=== PATIENT | female | born 1965 | race Two or more races ===

== ENCOUNTER 2020-03-14 06:28 | Inpatient (IN) | payer OTHER ==
[2020-03-13 10:11] VITALS: BMI 29.1
[2020-03-14] MEDS ORDERED: BUPIVACAINE LIPOSOME/PF (EXPAREL) 266 MG/20 ML VIAL ONE (07:10)
[2020-03-14] MEDS ORDERED: PAPAVERINE HCL 30 MG/1 ML 10 ML VIAL NR ONE (07:10)
[2020-03-14] MEDS ORDERED: HEPARIN NA (PORCINE) 5,000 UNITS/ML 1ML VIAL ONE (07:10)
[2020-03-14] MEDS ORDERED: BUPIVACAINE HCL/PF 0.25% (2.5MG/ML) 10 ML VIAL ONE (07:11)
[2020-03-14] MEDS ORDERED: MIDAZOLAM HCL 2 MG/2 ML SINGLE DOSE VIAL ONE ×2 (07:59)
[2020-03-14] MEDS ORDERED: ROCURONIUM BROMIDE 50 MG/5 ML SYRINGE ONE ×4 (08:16→14:05)
[2020-03-14] MEDS ORDERED: PROPOFOL 20 ML ONE ×10 (08:16→18:10)
[2020-03-14] MEDS ORDERED: ceFAZolin SODIUM 1 GM VIAL IVPB ONE ×3 (08:20→21:10)
[2020-03-14] MEDS ORDERED: HEPARIN NA (PORCINE) 5,000 UNITS/ML 1ML VIAL SQ ONE ×3 (08:23→09:09)
[2020-03-14] MEDS ORDERED: EPINEPHrine/PF 1 MG/1 ML (1:1,000) AMPULE ONE (08:38)
[2020-03-14] MEDS ORDERED: BUPIVACAINE LIPOSOME/PF (EXPAREL) 266 MG/20 ML VIAL NR ONE (08:51)
[2020-03-14] MEDS ORDERED: BUPIVACAINE HCL/PF 2.5 MG/ML - 30 ML VIAL IJ ONE (08:51)
[2020-03-14] MEDS ORDERED: ROCURONIUM BROMIDE 100 MG/10 ML VIAL ONE (14:07)
[2020-03-14] MEDS ORDERED: LIDOCAINE HCL/PF 2% SDV 5ML VIAL ONE ×4 (14:08→17:29)
[2020-03-14] MEDS ORDERED: DEXAMETHASONE SOD PHOSPHATE 4 MG/1 ML VIAL ONE ×2 (14:08→18:07)
[2020-03-14] MEDS ORDERED: ceFAZolin SODIUM 1 GM VIAL ONE ×2 (14:08→20:59)
[2020-03-14] MEDS ORDERED: ONDANSETRON 4 MG/2 ML VIAL ONE ×2 (14:08→18:07)
[2020-03-14] MEDS ORDERED: ONDANSETRON 4 MG/2 ML VIAL IVPUSH PRN (17:40)
[2020-03-14] MEDS ORDERED: INDOCYANINE GREEN 25 MG/10 ML VIAL IVPUSH ONE (18:01)
[2020-03-14] MEDS ORDERED: NEOSTIGMINE METHYLSULFATE 0.5 MG/1 ML - 10 ML MDV ONE ×2 (18:06→18:35)
[2020-03-14] MEDS ORDERED: GLYCOPYRROLATE 0.2 MG/1 ML VIAL ONE (18:07)
[2020-03-14] MEDS ORDERED: HYDROmorphone HCl 2 MG/ML VIAL ONE (18:08)
[2020-03-14] MEDS ORDERED: oxyCODONE HCL 5 MG TABLET PO PRN (19:00)
[2020-03-14] MEDS ORDERED: DEXTROSE 5%-0.45% SALINE 1,000 ML IV SCH (19:00)
--- NOTE | 2020-03-14 19:06 | OP ---
Operative Note - Note: Operative Date: 03/14/20 Pre-Operative Diagnosis: breast cancer s/p b/l mastectomy Operation: B/l BENNY flaps breast reconstruction Surgeon: Maadn Kim Film Processing Shift Supervisor: Isaac Salazar Anesthesiologist/HOOKER OFF: Daja Tapia MD Anesthesia: General Estimated Blood Loss (mls): 150 Drains & Tubes with Location: drains B/l breast and b/l abdomen Operative Report Dictated: Yes
[2020-03-14] MEDS: CEFAZOLIN 1 GM/D5W 1 GM/50 ML BAG IVPB SCH (21:10)
[2020-03-14] MEDS ORDERED: DOCUSATE SODIUM 100 MG CAPSULE (FP) PO SCH (22:00)
[2020-03-14] MEDS: LACTATED RINGERS SOLUTION 1,000 ML IV SCH (22:41)
--- NOTE | 2020-03-14 22:58 | CONSULT ---
Consultation: REQUESTING PROVIDER: CONSULT REQUEST: We have been asked to medically evaluate this patient for stability following bilateral mastectomy w/ BENNY flap reconstruction. HISTORY OF PRESENT ILLNESS: 54 yo F w/ PSHx of previous prophylactic, bilateral mastectomy w/ reconstruction (2010 - Dr. 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 Surgery performed by Dr. Kim. Patient has an internal doppler monitoring system to follow perfusion. Currently endorsing pain and tenderness expected of this surgery, within normal limits. Denies any BURKETT, changes in vision, CP, SoB, dizzyness, or parasthesias. PMHx - None PSHx -Prophylactic BL Mastectomy (2010) by Dr. Alonso w/ 1 step reconstruction -Lipoma (1997) SH -Lives w/ partner -Works for [employer] -Social Drinker -Denies tobacco/drug use FH -Multiple female family members w/ breast cancer Medications -Probiotic for bloating Alg -NKDA REVIEW OF SYSTEMS: CONSTITUTIONAL: Absent: fever, chills, diaphoresis, generalized weakness, malaise, loss of appetite HEENT: Absent: rhinorrhea, nasal congestion, throat pain, throat swelling, difficulty swallowing, mouth swelling, ear pain, eye pain, visual changes CARDIOVASCULAR: Absent: chest pain, syncope, palpitations, irregular heart rate, lightheadedness, peripheral edema RESPIRATORY: Absent: cough, shortness of breath, dyspnea with exertion, orthopnea, wheezing, stridor, hemoptysis GASTROINTESTINAL: Present: abdominal pain 2/2 surgery. Pain is as expected. Absent: abdominal distension, nausea, vomiting, diarrhea GENITOURINARY: Absent: dysuria, frequency, urgency, hesitancy, hematuria, flank pain, genital pain MUSCULOSKELETAL: Absent: myalgia, arthralgia, joint swelling, back pain, neck pain SKIN: Absent: rash, itching, pallor HEMATOLOGIC/IMMUNOLOGIC: Absent: easy bleeding, easy bruising, lymphadenopathy, frequent infections ENDOCRINE: Absent: unexplained weight gain, unexplained weight loss, heat intolerance, cold intolerance NEUROLOGIC: Absent: headache, focal weakness or paresthesias, dizziness, unsteady gait, seizure, mental status changes, bladder or bowel incontinence PSYCHIATRIC: Absent: anxiety, depression, suicidal or homicidal ideation, hallucinations. PHYSICAL EXAMINATION Vital Signs - 24 hr 03/14/20 03/14/20 03/14/20 21:00 21:15 21:30 Temperature Pulse Rate 80 75 85 Respiratory 15 16 18 Rate Blood Pressure 118/73 134/87 124/83 O2 Sat by Pulse 100 100 100 Oximetry (%) GENERAL: Awake, alert, and fully oriented, in no acute distress. HEAD: Normal with no signs of trauma. EYES: Pupils equal, round and reactive to light, extraocular movements intact, sclera anicteric, conjunctiva clear. No lid lag. EARS, NOSE, THROAT: Ears normal, nares patent, oropharynx clear without exudates. Moist mucous membranes. NECK: Normal range of motion, supple without lymphadenopathy, JVD, or masses. LUNGS: Breath sounds equal, clear to auscultation bilaterally. No wheezes, and no crackles. No accessory muscle use. HEART: Regular rate and rhythm, normal S1 and S2 without murmur, rub or gallop. ABDOMEN: Large incision s/p breast reconstruction w/ abdominal flap. BS+ MUSCULOSKELETAL: Strength 5/5 in upper/lower extremities b/l UPPER EXTREMITIES: warm, well-perfused. LOWER EXTREMITIES: warm, well-perfused. NEUROLOGICAL: Cranial nerves II-XII intact. Normal speech. PSYCHIATRIC: Cooperative. Good eye contact. Appropriate mood and affect. SKIN: Warm, dry, normal turgor, no rashes or lesions noted. Laboratory Results - last 24 hr 03/14/20 03/14/20 06:57 07:54 Blood Type A POSITIVE A POSITIVE Antibody Screen Negative Active Medications Generic Name Dose Route Start Last Admin Trade Name Freq PRN Reason Stop Dose Admin Aspirin 325 mg 03/15/20 10:00 Asa - PO DAILY [facility] Diazepam 5 mg 03/14/20 19:00 Valium - PO Q8H PRN ANXIETY Docusate Sodium 100 mg 03/14/20 22:00 Colace - PO BID ELENA Docusate Sodium 100 mg 03/15/20 10:00 Colace - PO DAILY ELENA Enoxaparin Sodium 40 mg 03/15/20 10:00 Lovenox - SQ DAILY ELENA Fentanyl 50 mcg 03/14/20 17:40 03/14/20 20:00 Sublimaze Injection - IVPUSH 50 mcg [id number] PRN Administration PAIN-PACU ORDER X 4 DOSES ONLY Hydromorphone HCl 1 mg 03/14/20 21:04 Dilaudid Vial - IVPB Q4H PRN PAIN LEVEL 6-10 Lactated Ringer's 1,000 mls @ 75 mls/hr 03/14/20 17:45 03/14/20 22:41 Lactated Ringers Solution IV Not Given ASDIR ELENA Cefazolin Sodium 1 gm in 50 mls @ 100 mls/hr 03/14/20 21:00 03/14/20 21:10 Ancef 1 Gm Premixed Ivpb - IVPB 03/15/20 20:59 100 mls/hr Q6H-IV ELENA Administration Dextrose/Sodium Chloride 1,000 mls @ 125 mls/hr 03/14/20 19:00 03/14/20 22:41 D5-1/2ns - IV 03/15/20 07:59 Not Given ASDIR ELENA Dextrose/Sodium Chloride 1,000 mls @ 75 mls/hr 03/15/20 08:00 D5-1/2ns - IV ASDIR ELENA Ondansetron HCl 4 mg 03/14/20 17:40 Zofran Injection IVPUSH Q6H PRN NAUSEA AND/OR VOMITING Oxycodone HCl 5 mg 03/15/20 19:00 Roxicodone - PO Q4H PRN PAIN LEVEL 1-5 Oxycodone HCl 10 mg 03/14/20 19:00 Roxicodone - PO Q4H PRN PAIN LEVEL 6-10 ASSESSMENT/PLAN: 54 yo F w/ PSHx of previous prophylactic, bilateral mastectomy w/ reconstruction (2010 - Dr. 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 Surgery performed by Dr. Kim. NEURO -AAOx3 -Monitor neural functions -Monitor for any neurologic comprosmise 2/2 to vascular perfusion CARDIO -Monitor HR/BP -EKG tomorrow (establish baseline) -Check Dopplers at transplant site @ q15 first hour, q30 next 2 hours, then q1 PULM -Incentive spirometer -Elevate head of bed -SCDs GI -GI PPx as needed -Zofran Ordered (EKG ordered for tomorrow) -Stool softeners Pain -Pain management per anasthesia/surgery -Valium for anxiety -Dilaudid for pain INFECTIONS -Ancef FEN -Clear liquid Diet -Morning Labs Ordered -Ame Espinal Dispo: We will continue to follow the patient. Thank you for this consultative opportunity. -Partner called told ptn was out of surgery and in ICU -Asked to inform ptn that he was made aware (ptn asleep at time) Visit type - Emergency Visit Emergency Visit: No - New Patient This patient is new to me today: Yes Date on this admission: 03/15/20 - Critical Care Critical Care patient: Yes Total Critical Care Time (in minutes): 36 Critical Care Statement: The care of this patient involved high complexity decision making to prevent further life threatening deterioration of the patient's condition and/or to evaluate & treat vital organ system(s) failure or risk of failure. ATTENDING PHYSICIAN STATEMENT I saw and evaluated the patient. I reviewed the resident's note and discussed the case with the resident. I agree with the resident's findings and plan as documented. SUBJECTIVE: OBJECTIVE: ASSESSMENT AND PLAN:
[2020-03-14] MEDS: HYDROmorphone HCl 2 MG/ML VIAL IVPB PRN (23:12)
[2020-03-15] MEDS: diazePAM 5 MG TABLET PO PRN (02:01)
[2020-03-15] MEDS ORDERED: DEXTROSE 5%-WATER - 50 ML IVPB ONE ×3 (03:19→13:56)
[2020-03-15] MEDS ORDERED: ceFAZolin SODIUM 1 GM VIAL ONE ×3 (03:19→13:56)
[2020-03-15] MEDS: CEFAZOLIN 1 GM in DEXTROSE 5%-WATER - 50 ML IVPB SCH ×3 (03:21→14:45)
[2020-03-15] MEDS: HYDROmorphone HCl 2 MG/ML VIAL IVPB PRN ×3 (03:21→16:53)
[2020-03-15] MEDS: CEFAZOLIN 1 GM/D5W 1 GM/50 ML BAG IVPB SCH (04:04)
[2020-03-15] MEDS: DEXTROSE 5%-0.45% SALINE 1,000 ML IV SCH (07:22)
[2020-03-15 07:23] LABS: BASO % 0.2 % (0-2.0); HEMATOCRIT 28.3 % (32.4-45.2); HEMOGLOBIN 9.5 GM/dL (10.7-15.3); LYMPH % 12.6 % (8-40); MCH 30.2 pg (25.7-33.7); MCHC 33.5 g/dl (32.0-36.0); MEAN PLT VOLUME 9.5 fl (7.5-11.1); MONO % 7.9 % (3.8-10.2); NEUT % 79.3 % (42.8-82.8); PLATELET COUNT 215 K/MM3 (134-434); RBC 3.15 M/mm3 (3.60-5.2); RDW 13.2 % (11.6-15.6); WHITE BLOOD COUNT 9.6 K/mm3 (4.0-10.0)
[2020-03-15 07:31] LABS: INR 1.13 (0.83-1.09); PROTHROMBIN TIME (PATIENT) 13.3 SEC (9.7-13.0)
[2020-03-15 07:40] LABS: POTASSIUM 4.4 mmol/L (3.5-5.1)
[2020-03-15 07:47] LABS: ALBUMIN 2.9 g/dl (3.4-5.0); BILIRUBIN,TOTAL 0.5 mg/dL (0.2-1); BLOOD UREA NITROGEN 16.2 mg/dL (7-18); PHOSPHOROUS 3.7 mg/dL (2.5-4.9); TOT PROT 5.6 g/dl (6.4-8.2)
[2020-03-15] MEDS: ENOXAPARIN NA (PORCINE) 40 MG/0.4 ML DISP.SYRIN SQ SCH (09:28)
[2020-03-15] MEDS: ASPIRIN 325 MG TABLET PO SCH (09:28)
[2020-03-15] MEDS: DOCUSATE SODIUM 100 MG CAPSULE (FP) PO SCH ×2 (09:29→21:42)
[2020-03-15] MEDS: oxyCODONE HCL 5 MG TABLET PO PRN ×3 (09:30→21:41)
--- NOTE | 2020-03-15 09:41 | PN ---
Progress Note (short form) - Note Progress Note: POD 1, s/p B/l BENNY flaps breast reconstruction Pt seen and examined. Reports pain overnight, worse in rlq. Tolerating liquids, no n/v. Has not been oob. Palacios in place. Denies cp/sob, n/v/d. Vital Signs Temp 99 F 03/15/20 09:35 Pulse 79 03/15/20 09:35 Resp 20 03/15/20 09:35 BP 120/73 03/15/20 08:00 Pulse Ox 100 03/15/20 07:00 Intake & Output 03/14/20 03/14/20 03/15/20 11:59 23:59 11:59 Intake Total 3800 300 1550 Output Total 900 1216 413 Balance 2900 -916 1137 Weight 175 lb Intake: IV 3800 300 1250 D5-1/2Ns - 1,000 ml @ 125 1250 mls/hr IV ASDIR ELENA Rx#: [id number] IVPB 100 Oral 200 Output: Drainage 166 213 #1 Right Breast 30 41 #2 Right Lower Abdomen 10 19 #3 Left Breast 25 26 #4 Left Lower 18 42 Left Lower Abdomen 28 Right Lower Abdomen 13 left breast 17 right breast 27 Urine 900 900 200 Palacios 200 200 Estimated Blood Loss 150 Other: Voiding Method Incontinent Indwelling Catheter Bowel Movement No Weight Measurement Method Estimated by Patient CBC, BMP 03/15/20 05:30 03/15/20 06:00 Gen: awake, alert, nad Resp: unlabored on RA Chest: b/l flaps warm, pink, no vascular congestion noted, pulses appreciated via implantable doppler. Inframammary incisions c/d/i with dermabond inplace, drains intact, b/l tubing stripped, minimal serosanguinous drainage in reservoi rs. Abdo: belly button with dermabond c/d/i, umbilicus pink with dried scab noted. abdominoplasty incision c/d/i with dermabond in place, no erythema or drainage. drains in place with minimal serosanguinous drainage in reservoir, tubing stripped. A/P: 54 y/o F w/ PSHx of previous prophylactic, bilateral mastectomy w/ reconstruction (2010 - Dr. 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 afebrile, vss labs reviewed tiana output since OR: R breast: 71ml, R abdo: 29ml, L breast 51ml, L abdo: 60ml UOP: 400ml overnight, palacios yellow Pain control OOB today to chair (pt should remain flexed at the waist when in bed and ambulating) clears, advance diet as tolerated Continue pulse monitoring Keep jps in place, monitor and record output palacios out this AM, tov Continue Ancef 1g q8hrs Monitor flaps q1hrs x 36 hrs until POD 2 Continue ASA 325mg qd DVT prophylaxis with lovenox 40qd, b/l scds pt seen with attending Dr Salazar
[2020-03-15] MEDS ORDERED: DOCUSATE SODIUM 100 MG CAPSULE (FP) PO SCH (10:00)
--- NOTE | 2020-03-15 11:38 | EKG ---
Test Reason : Blood Pressure : / mmHG Vent. Rate : 085 BPM Atrial Rate : 085 BPM P-R Int : 136 ms QRS Dur : 082 ms QT Int : 358 ms P-R-T Axes : 042 034 028 degrees QTc Int : 426 ms NORMAL SINUS RHYTHM NORMAL ECG NO PREVIOUS ECGS AVAILABLE Confirmed by MD RENETTA, DEONDRE ([id number]) on 03/15/2020 11:37:33 AM Referred By: Confirmed By:DEONDRE JACKSON MD
--- NOTE | 2020-03-15 12:13 | PN ---
Teaching Attending Note Name of Resident: Stefani Cameron ATTENDING PHYSICIAN STATEMENT I saw and evaluated the patient. I reviewed the resident's note and discussed the case with the resident. I agree with the resident's findings and plan as documented. SUBJECTIVE: Pt seen and examined in the ICU. Pain controlled. No shortness of breath, n ausea. Serosanguinous drainage in JPs, good doppler flow. OBJECTIVE: Vital Signs Period Temp Pulse Resp BP Sys/Doran Pulse Ox Last 24 Hr 98 F-100.2 F 73-102 13-25 110-143/62-92 98-100 Intake & Output 03/12/20 03/13/20 03/14/20 03/15/20 23:59 23:59 23:59 23:59 Intake Total 4100 1550 Output Total 2116 413 Balance 1983 1136 Weight 79.379 kg 79.379 kg Gen: NAD at rest Heart: RRR Lung: decreased breath sounds at the bases Abd: soft, incisions clean Ext: no edema CBC, BMP 03/15/20 05:30 03/15/20 06:00 Active Medications Aspirin (Asa -) 325 mg PO DAILY [facility] Last Admin: 03/15/20 09:28 Dose: 325 mg Documented by: Diazepam (Valium -) 5 mg PO Q8H PRN PRN Reason: ANXIETY Last Admin: 03/15/20 02:01 Dose: 5 mg Documented by: Docusate Sodium (Colace -) 100 mg PO BID [facility] Last Admin: 03/15/20 09:29 Dose: 100 mg Documented by: Enoxaparin Sodium (Lovenox -) 40 mg SQ DAILY [facility] Last Admin: 03/15/20 09:28 Dose: 40 mg Documented by: Hydromorphone HCl (Dilaudid Vial -) 1 mg IVPB Q4H PRN PRN Reason: PAIN LEVEL 4-6 Last Admin: 03/15/20 07:23 Dose: 1 mg Documented by: Lactated Ringer's (Lactated Ringers Solution) 1,000 mls @ 75 mls/hr IV ASDIR [facility] Last Admin: 03/14/20 22:41 Dose: Not Given Documented by: Dextrose/Sodium Chloride (D5-1/2ns -) 1,000 mls @ 75 mls/hr IV ASDIR [facility] Last Admin: 03/15/20 07:22 Dose: 75 mls/hr Documented by: Cefazolin Sodium 1 gm/ (Dextrose) 50 mls @ 100 mls/hr IVPB Q6H-IV ELENA Stop: 03/15/20 20:59 Last Admin: 03/15/20 09:28 Dose: 100 mls/hr Documented by: Ondansetron HCl (Zofran Injection) 4 mg IVPUSH Q6H PRN PRN Reason: NAUSEA AND/OR VOMITING Oxycodone HCl (Roxicodone -) 5 mg PO Q4H PRN PRN Reason: PAIN LEVEL 1-3 Oxycodone HCl (Roxicodone -) 10 mg PO Q4H PRN PRN Reason: PAIN LEVEL 7-10 Last Admin: 03/15/20 09:30 Dose: 10 mg Documented by: ASSESSMENT AND PLAN: s/p Bilateral BENNY flap breast reconstruction Anemia - doppler checks - pain control - incentive spirometry - O2 to keep SpO2 >90% - PO as tolerated - DVT prophylaxis - continue ICU monitoring
--- NOTE | 2020-03-15 13:18 | PN ---
Physical Exam: SUBJECTIVE: Patient seen and examined at bedside. pt states she is uncomfortable with the mattress but otherwise denies palpitations, SOB. endorses discomfort around surgical site. OBJECTIVE: Vital Signs Period Temp Pulse Resp BP Sys/Doran Pulse Ox Last 24 Hr 98 F-100.2 F 73-102 13-25 110-143/62-92 98-100 GENERAL: The patient is awake, alert, and fully oriented, in no acute distress. HEAD: Normal with no signs of trauma. LUNGS: Breath sounds equal, clear to auscultation bilaterally, no accessory muscle use. HEART: Regular rate and rhythm, S1, S2 without murmur ABDOMEN: Soft, nontender, nondistended, normoactive bowel sounds, no guarding EXTREMITIES: 2+ pulses, warm, well-perfused, no edema. muscle strength 5/5 B/L UE and LE SKIN: Warm, dry, normal turgor, no rashes or lesions noted Laboratory Results - last 24 hr 03/15/20 03/15/20 03/15/20 05:30 05:30 06:00 WBC 9.6 RBC 3.15 L Hgb 9.5 L Hct 28.3 L MCV 90.0 MCH 30.2 MCHC 33.5 RDW 13.2 Plt Count 215 MPV 9.5 Absolute Neuts (auto) 7.7 Neutrophils % 79.3 Lymphocytes % 12.6 Monocytes % 7.9 Eosinophils % 0.0 Basophils % 0.2 Nucleated RBC % 0 PT with INR 13.30 H INR 1.13 H Sodium 137 Potassium 4.4 Chloride 105 Carbon Dioxide 24 Anion Gap 9 BUN 16.2 Creatinine 1.0 Est GFR (CKD-EPI)AfAm 73.45 Est GFR (CKD-EPI)NonAf 63.37 Random Glucose 149 H Calcium 8.0 L Phosphorus 3.7 Magnesium 2.0 Total Bilirubin 0.5 AST 44 H ALT 25 Alkaline Phosphatase 56 Total Protein 5.6 L Albumin 2.9 L Active Medications Generic Name Dose Route Start Last Admin Trade Name Freq PRN Reason Stop Dose Admin Aspirin 325 mg 03/15/20 10:00 03/15/20 09:28 Asa - PO 325 mg DAILY ELENA Administration Diazepam 5 mg 03/14/20 19:00 03/15/20 02:01 Valium - PO 5 mg Q8H PRN Administration ANXIETY Docusate Sodium 100 mg 03/15/20 10:00 03/15/20 09:29 Colace - PO 100 mg BID ELENA Administration Enoxaparin Sodium 40 mg 03/15/20 10:00 03/15/20 09:28 Lovenox - SQ 40 mg DAILY ELENA Administration Hydromorphone HCl 1 mg 03/14/20 21:04 03/15/20 07:23 Dilaudid Vial - IVPB 1 mg Q4H PRN Administration PAIN LEVEL 4-6 Lactated Ringer's 1,000 mls @ 75 mls/hr 03/14/20 17:45 03/14/20 22:41 Lactated Ringers Solution IV Not Given ASDIR ELENA Dextrose/Sodium Chloride 1,000 mls @ 75 mls/hr 03/15/20 08:00 03/15/20 07:22 D5-1/2ns - IV 75 mls/hr ASDIR ELENA Administration Cefazolin Sodium 1 gm/ 50 mls @ 100 mls/hr 03/15/20 03:20 03/15/20 09:28 Dextrose IVPB 03/15/20 20:59 100 mls/hr Q6H-IV ELENA Administration Ondansetron HCl 4 mg 03/14/20 17:40 Zofran Injection IVPUSH Q6H PRN NAUSEA AND/OR VOMITING Oxycodone HCl 5 mg 03/15/20 08:34 Roxicodone - PO Q4H PRN PAIN LEVEL 1-3 Oxycodone HCl 10 mg 03/15/20 08:34 03/15/20 09:30 Roxicodone - PO 10 mg Q4H PRN Administration PAIN LEVEL 7-10 ASSESSMENT/PLAN: 54 yo F w/ PSHx of previous prophylactic, bilateral mastectomy w/ reconstruction (2010 - Dr. 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 Kim. POD 1 NEURO -AAOx3 CARDIO -vitals stable -EKG tomorrow (establish baseline) -c/w Doppler check at transplant site q1hrs x 36 hrs until POD 2 - c/w asa 325 qd PULM -encourage Incentive spirometer -Elevate head of bed GI -Zofran Ordered (EKG ordered for tomorrow) -Stool softeners - clear diet, advance as tolerated MSK -Pain management per anasthesia/surgery -Valium for anxiety -Dilaudid for pain - c/w ancef q8h - OOB to chair DVTppx: lovenox 40 qd , SCDs Dispo:ICU Visit type - Emergency Visit Emergency Visit: No - New Patient This patient is new to me today: No - Critical Care Critical Care patient: Yes Total Critical Care Time (in minutes): 36 Critical Care Statement: The care of this patient involved high complexity decision making to prevent further life threatening deterioration of the patient's condition and/or to evaluate & treat vital organ system(s) failure or risk of failure. - Discharge Referral Referred to [facility] No ATTENDING PHYSICIAN STATEMENT I saw and evaluated the patient. I reviewed the resident's note and discussed the case with the resident. I agree with the resident's findings and plan as documented. SUBJECTIVE: OBJECTIVE: ASSESSMENT AND PLAN:
--- NOTE | 2020-03-15 14:11 | PN ---
Progress Note, Physician Chief Complaint: s/p BENNY flap under general anesthesia post op day one. History of Present Illness: IV/oral analgesics for post op pain control. - Current Medication List Current Medications: Active Medications Aspirin (Asa -) 325 mg PO DAILY [facility] Last Admin: 03/15/20 09:28 Dose: 325 mg Documented by: Diazepam (Valium -) 5 mg PO Q8H PRN PRN Reason: ANXIETY Last Admin: 03/15/20 02:01 Dose: 5 mg Documented by: Docusate Sodium (Colace -) 100 mg PO BID [facility] Last Admin: 03/15/20 09:29 Dose: 100 mg Documented by: Enoxaparin Sodium (Lovenox -) 40 mg SQ DAILY [facility] Last Admin: 03/15/20 09:28 Dose: 40 mg Documented by: Hydromorphone HCl (Dilaudid Vial -) 1 mg IVPB Q4H PRN PRN Reason: PAIN LEVEL 4-6 Last Admin: 03/15/20 07:23 Dose: 1 mg Documented by: Lactated Ringer's (Lactated Ringers Solution) 1,000 mls @ 75 mls/hr IV ASDIR [facility] Last Admin: 03/14/20 22:41 Dose: Not Given Documented by: Dextrose/Sodium Chloride (D5-1/2ns -) 1,000 mls @ 75 mls/hr IV ASDIR [facility] Last Admin: 03/15/20 07:22 Dose: 75 mls/hr Documented by: Cefazolin Sodium 1 gm/ (Dextrose) 50 mls @ 100 mls/hr IVPB Q6H-IV [facility] Stop: 03/15/20 20:59 Last Admin: 03/15/20 09:28 Dose: 100 mls/hr Documented by: Ondansetron HCl (Zofran Injection) 4 mg IVPUSH Q6H PRN PRN Reason: NAUSEA AND/OR VOMITING Oxycodone HCl (Roxicodone -) 5 mg PO Q4H PRN PRN Reason: PAIN LEVEL 1-3 Oxycodone HCl (Roxicodone -) 10 mg PO Q4H PRN PRN Reason: PAIN LEVEL 7-10 Last Admin: 03/15/20 13:57 Dose: 10 mg Documented by: - Objective Vital Signs: Vital Signs Temperature 99.2 F 03/15/20 13:27 Pulse Rate 80 03/15/20 13:27 Respiratory Rate 20 03/15/20 13:27 Blood Pressure 121/68 03/15/20 12:00 O2 Sat by Pulse Oximetry (%) 100 03/15/20 07:00 Constitutional: Yes: Well Nourished Cardiovascular: Yes: WNL Respiratory: Yes: WNL Gastrointestinal: Yes: WNL Labs: CBC, BMP 03/15/20 05:30 03/15/20 06:00 INR, PTT INR 1.13 (0.83-1.09) H 03/15/20 05:30 Assessment/Plan No adverse effects of anesthetic, pain controlled at rest, having difficulty moving, advised to request more pain medication if she's not able to sit up or cough without bad pain, otherwise doing ok, dept of anesthesiology will sign off care at this time
[2020-03-15] MEDS ORDERED: oxyCODONE HCL 5 MG TABLET PO PRN (19:00)
[2020-03-15] MEDS: LACTATED RINGERS SOLUTION 1,000 ML IV SCH (19:48)
[2020-03-15] MEDS ORDERED: PT OWN MED DRAWER 7, Y5N ONE (21:14)
[2020-03-15] MEDS: ACETAMINOPHEN 325 MG TABLET (FP) PO PRN (21:40)
[2020-03-16] MEDS: oxyCODONE HCL 5 MG TABLET PO PRN ×5 (00:29→20:54)
[2020-03-16] MEDS: ACETAMINOPHEN 325 MG TABLET (FP) PO PRN (01:41)
[2020-03-16 07:22] LABS: HEMATOCRIT 24.7 % (32.4-45.2); HEMOGLOBIN 8.3 GM/dL (10.7-15.3); MCH 30.1 pg (25.7-33.7); MCHC 33.5 g/dl (32.0-36.0); MEAN CELL VOLUME 89.8 fl (80-96); MEAN PLT VOLUME 9.3 fl (7.5-11.1); PLATELET COUNT 181 K/MM3 (134-434); RBC 2.75 M/mm3 (3.60-5.2); RDW 13.3 % (11.6-15.6); WHITE BLOOD COUNT 9.9 K/mm3 (4.0-10.0)
[2020-03-16 07:42] LABS: ALBUMIN 2.6 g/dl (3.4-5.0); BILIRUBIN,TOTAL 0.6 mg/dL (0.2-1); CREATININE 0.8 mg/dL (0.55-1.3); MAGNESIUM 2.2 mg/dL (1.8-2.4); PHOSPHOROUS 2.2 mg/dL (2.5-4.9); TOT PROT 5.4 g/dl (6.4-8.2)
[2020-03-16 07:56] LABS: CALCIUM 7.9 mg/dL (8.5-10.1)
[2020-03-16] MEDS: DEXTROSE 5%-0.45% SALINE 1,000 ML IV SCH (08:00)
--- NOTE | 2020-03-16 09:48 | PN ---
Progress Note (short form) - Note Progress Note: POD 2, s/p B/l BENNY flaps breast reconstruction Pt seen and examined. Reports pain slightly improved. Tolerating diet, no n/v. Was oob into chair yesterday, Palacios removed. Denies cp/sob, n/v/d. Pt very anxious about walking. Vital Signs Temp 98.7 F 03/16/20 08:00 Pulse 86 03/16/20 08:00 Resp 17 03/16/20 08:00 BP 124/58 L 03/16/20 08:00 Pulse Ox 100 03/16/20 08:00 Intake & Output 03/15/20 03/15/20 03/16/20 11:59 23:59 11:59 Intake Total 1550 1425 1250 Output Total 413 1201 2013 Balance 1137 224 764 Weight 175 lb 175 lb Intake: IV 1250 825 750 D5-1/2Ns - 1,000 ml @ 125 1250 825 750 mls/hr IV ASDIR ELENA Rx#: [id number] IVPB 100 200 Oral 200 400 500 Output: Drainage 213 201 314 #1 Right Breast 41 32 49 #2 Right Lower Abdomen 19 40 20 #3 Left Breast 26 23 40 #4 Left Lower 42 46 17 Left Lower Abdomen 28 20 63 Right Lower Abdomen 13 15 65 left breast 17 15 25 right breast 27 10 35 Urine 200 1000 1700 Palacios 200 1000 1700 Other: Voiding Method Indwelling Catheter Indwelling Catheter Indwelling Catheter Bowel Movement No No No Weight Measurement Method Estimated by Patient Estimated by Patient Gen: awake, alert, nad Resp: unlabored on RA Chest: b/l flaps warm, pink, no vascular congestion noted, pulses appreciated via implantable doppler. Inframammary incisions c/d/i with dermabond inplace, drains intact, b/l tubing stripped, minimal serosanguinous drainage in reservoirs. Abdo: belly button with dermabond c/d/i, umbilicus pink with dried scab noted. abdominoplasty incision c/d/i with dermabond in place, no erythema or drainage. drains in place with minimal serosanguinous drainage in reservoir, tubing stripped. A/P: 54 y/o F w/ PSHx of previous prophylactic, bilateral mastectomy w/ reconstruction (2010 - Dr. Alonso), admitted for elective breast reconstruction, now POD 2, s/p bilateral breast reconstruction w/ with BENNY(deep inferior epigastric rn palliative care artery) abdominal flap 2/2 bilateral capsular contractures in her breasts. Pain control will add Toradol TID OOB today Ambulate with PT, emphasized importance of moving and walking. regular diet Keep jps in place, monitor and record output palacios out this AM, tov Continue Ancef 1g q8hrs Monitor flaps q1hrs x 36 hrs until POD 2 Continue ASA 325mg qd DVT prophylaxis with lovenox 40qd, b/l scds Dispo: if pt able to ambulate with PT and pain controlled. Possible discharge later afternoon, otherwise tomorrow. pt seen with attending Dr Kim
[2020-03-16] MEDS: KETOROLAC TROMETHAMINE 30 MG/1 ML VIAL IVPUSH SCH ×2 (09:59→17:27)
[2020-03-16] MEDS: DOCUSATE SODIUM 100 MG CAPSULE (FP) PO SCH ×2 (10:01→21:00)
[2020-03-16] MEDS: ASPIRIN 325 MG TABLET PO SCH (10:01)
[2020-03-16] MEDS: ENOXAPARIN NA (PORCINE) 40 MG/0.4 ML DISP.SYRIN SQ SCH (10:02)
[2020-03-16] MEDS: diazePAM 5 MG TABLET PO PRN (10:11)
--- NOTE | 2020-03-16 11:11 | PN ---
Physical Exam: SUBJECTIVE: Patient seen and examined at bedside. pt denies SOB or CP. she demonstrated how she uses incentive spirometry OBJECTIVE: Vital Signs Period Temp Pulse Resp BP Sys/Doran Pulse Ox Last 24 Hr 97.6 F-99.9 F 77-96 14-25 107-132/52-70 98-100 GENERAL: The patient is awake, alert, and fully oriented, in no acute distress. HEAD: Normal with no signs of trauma. LUNGS: Breath sounds equal, clear to auscultation bilaterally, no accessory muscle use. HEART: Regular rate and rhythm, S1, S2 + systolic murmur ABDOMEN: Soft, nontender, nondistended, normoactive bowel sounds, no guarding EXTREMITIES: 2+ pulses, warm, well-perfused, no edema. SKIN: Warm, dry, normal turgor, no rashes or lesions noted Laboratory Results - last 24 hr 03/16/20 03/16/20 05:30 05:30 WBC 9.9 RBC 2.75 L Hgb 8.3 L Hct 24.7 L MCV 89.8 MCH 30.1 MCHC 33.5 RDW 13.3 Plt Count 181 MPV 9.3 Sodium 138 Potassium 4.0 Chloride 106 Carbon Dioxide 28 Anion Gap 4 L BUN 10.0 Creatinine 0.8 Est GFR (CKD-EPI)AfAm 96.19 Est GFR (CKD-EPI)NonAf 83.00 Random Glucose 115 H Calcium 7.9 L Phosphorus 2.2 L Magnesium 2.2 Total Bilirubin 0.6 AST 66 H ALT 27 Alkaline Phosphatase 58 Total Protein 5.4 L Albumin 2.6 L Active Medications Generic Name Dose Route Start Last Admin Trade Name Elioq PRN Reason Stop Dose Admin Acetaminophen 650 mg 03/15/20 16:16 03/16/20 01:41 Tylenol - PO 650 mg Q4H PRN Administration PAIN LEVEL 1 - 3 Aspirin 325 mg 03/15/20 10:00 03/16/20 10:01 Asa - PO 325 mg DAILY ELENA Administration Diazepam 5 mg 03/14/20 19:00 03/16/20 10:11 Valium - PO 5 mg Q8H PRN Administration ANXIETY Docusate Sodium 100 mg 03/15/20 10:00 03/16/20 10:01 Colace - PO 100 mg BID ELENA Administration Enoxaparin Sodium 40 mg 03/15/20 10:03/16/20 10:02 Lovenox - SQ 40 mg DAILY ELENA Administration Hydromorphone HCl 1 mg 03/14/20 21:04 03/15/20 16:53 Dilaudid Vial - IVPB 1 mg Q4H PRN Administration PAIN LEVEL 4-6 Lactated Ringer's 1,000 mls @ 75 mls/hr 03/14/20 17:45 03/15/20 19:48 Lactated Ringers Solution IV Not Given ASDIR ELENA Dextrose/Sodium Chloride 1,000 mls @ 75 mls/hr 03/15/20 08:00 03/15/20 07:22 D5-1/2ns - IV 75 mls/hr ASDIR ELENA Administration Ketorolac Tromethamine 30 mg 03/16/20 10:00 03/16/20 09:59 Toradol Injection - IVPUSH 03/21/20 09:59 30 mg Q8H-IV ELENA Administration Ondansetron HCl 4 mg 03/14/20 17:40 Zofran Injection IVPUSH Q6H PRN NAUSEA AND/OR VOMITING Oxycodone HCl 5 mg 03/15/20 08:34 03/16/20 00:29 Roxicodone - PO 5 mg Q4H PRN Administration PAIN LEVEL 1-3 Oxycodone HCl 10 mg 03/15/20 08:34 03/16/20 07:39 Roxicodone - PO 10 mg Q4H PRN Administration PAIN LEVEL 7-10 ASSESSMENT/PLAN: 54 yo F w/ PSHx of previous prophylactic, bilateral mastectomy w/ reconstruction (2010 - Dr. 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 Kim. POD 2 NEURO -AAOx3 CARDIO -vitals stable - c/w asa 325 qd PULM -encourage Incentive spirometer -Elevate head of bed GI -Zofran Ordered (EKG ordered for tomorrow) -Stool softeners - clear diet, advance as tolerated MSK -Pain management per anasthesia/surgery -Valium for anxiety -Dilaudid for pain - c/w ancef q8h - OOB to chair - bladder scan, pt retaining urine - will straight cath DVTppx: lovenox 40 qd , SCDs. possible DC today Visit type - Emergency Visit Emergency Visit: No - New Patient This patient is new to me today: No - Critical Care Critical Care patient: Yes Total Critical Care Time (in minutes): 38 Critical Care Statement: The care of this patient involved high complexity decision making to prevent further life threatening deterioration of the patient's condition and/or to evaluate & treat vital organ system(s) failure or risk of failure. - Discharge Referral Referred to [facility] No ATTENDING PHYSICIAN STATEMENT I saw and evaluated the patient. I reviewed the resident's note and discussed the case with the resident. I agree with the resident's findings and plan as documented. SUBJECTIVE: OBJECTIVE: ASSESSMENT AND PLAN:
--- NOTE | 2020-03-16 15:24 | PN ---
Teaching Attending Note Name of Resident: Stefani Cameron ATTENDING PHYSICIAN STATEMENT I saw and evaluated the patient. I reviewed the resident's note and discussed the case with the resident. I agree with the resident's findings and plan as documented. SUBJECTIVE: Patient seen and examined in the ICU. Pain better controlled. No shortness of breath. Incentive Spirometry : less than 500cc. OBJECTIVE: Intake & Output 03/13/20 03/14/20 03/15/20 03/16/20 23:59 23:59 23:59 23:59 Intake Total 4100 2975 1250 Output Total 2116 1614 2099 Balance 1984 1361 -849 Weight 175 lb 175 lb 175 lb Last Vital Signs Temp Pulse Resp BP Pulse Ox 98.6 F 88 17 112/98 98 03/16/20 10:00 03/16/20 14:00 03/16/20 14:00 03/16/20 14:00 03/16/20 10:00 Active Medications Acetaminophen (Tylenol -) 650 mg PO Q4H PRN PRN Reason: PAIN LEVEL 1 - 3 Last Admin: 03/16/20 01:41 Dose: 650 mg Documented by: Aspirin (Asa -) 325 mg PO DAILY [facility] Last Admin: 03/16/20 10:01 Dose: 325 mg Documented by: Diazepam (Valium -) 5 mg PO Q8H PRN PRN Reason: ANXIETY Last Admin: 03/16/20 10:11 Dose: 5 mg Documented by: Docusate Sodium (Colace -) 100 mg PO BID [facility] Last Admin: 03/16/20 10:01 Dose: 100 mg Documented by: Enoxaparin Sodium (Lovenox -) 40 mg SQ DAILY [facility] Last Admin: 03/16/20 10:02 Dose: 40 mg Documented by: Hydromorphone HCl (Dilaudid Vial -) 1 mg IVPB Q4H PRN PRN Reason: PAIN LEVEL 4-6 Last Admin: 03/15/20 16:53 Dose: 1 mg Documented by: Lactated Ringer's (Lactated Ringers Solution) 1,000 mls @ 75 mls/hr IV ASDIR [facility] Last Admin: 03/15/20 19:48 Dose: Not Given Documented by: Dextrose/Sodium Chloride (D5-1/2ns -) 1,000 mls @ 75 mls/hr IV ASDIR [facility] Last Admin: 03/16/20 08:00 Dose: Not Given Documented by: Ketorolac Tromethamine (Toradol Injection -) 30 mg IVPUSH Q8H-IV ELENA Stop: 03/21/20 09:59 Last Admin: 03/16/20 09:59 Dose: 30 mg Documented by: Ondansetron HCl (Zofran Injection) 4 mg IVPUSH Q6H PRN PRN Reason: NAUSEA AND/OR VOMITING Oxycodone HCl (Roxicodone -) 5 mg PO Q4H PRN PRN Reason: PAIN LEVEL 1-3 Last Admin: 03/16/20 00:29 Dose: 5 mg Documented by: Oxycodone HCl (Roxicodone -) 10 mg PO Q4H PRN PRN Reason: PAIN LEVEL 7-10 Last Admin: 03/16/20 15:02 Dose: 10 mg Documented by: Gen: NAD at rest Heart: RRR Lung: decreased breath sounds at the bases Abd: soft, incisions clean Ext: no edema Laboratory Results - last 24 hr 03/16/20 03/16/20 05:30 05:30 WBC 9.9 RBC 2.75 L Hgb 8.3 L Hct 24.7 L MCV 89.8 MCH 30.1 MCHC 33.5 RDW 13.3 Plt Count 181 MPV 9.3 Sodium 138 Potassium 4.0 Chloride 106 Carbon Dioxide 28 Anion Gap 4 L BUN 10.0 Creatinine 0.8 Est GFR (CKD-EPI)AfAm 96.19 Est GFR (CKD-EPI)NonAf 83.00 Random Glucose 115 H Calcium 7.9 L Phosphorus 2.2 L Magnesium 2.2 Total Bilirubin 0.6 AST 66 H ALT 27 Alkaline Phosphatase 58 Total Protein 5.4 L Albumin 2.6 L ASSESSMENT AND PLAN: POD #1 : Bilateral BENNY flap breast reconstruction Breast CA Anemia - doppler checks - pain control - incentive spirometry - O2 to keep SpO2 >90% - PO as tolerated - DVT prophylaxis - OOB to chair / PT Dr Nelson
[2020-03-16] MEDS: LACTATED RINGERS SOLUTION 1,000 ML IV SCH (17:45)
[2020-03-17] MEDS: KETOROLAC TROMETHAMINE 30 MG/1 ML VIAL IVPUSH SCH ×2 (01:51→09:03)
[2020-03-17 06:04] LABS: HEMATOCRIT 21.8 % (32.4-45.2); HEMOGLOBIN 7.4 GM/dL (10.7-15.3); MCH 30.2 pg (25.7-33.7); MCHC 33.9 g/dl (32.0-36.0); MEAN CELL VOLUME 89.3 fl (80-96); MEAN PLT VOLUME 8.8 fl (7.5-11.1); PLATELET COUNT 167 K/MM3 (134-434); RBC 2.44 M/mm3 (3.60-5.2); RDW 12.8 % (11.6-15.6); WHITE BLOOD COUNT 8.5 K/mm3 (4.0-10.0)
[2020-03-17] MEDS: oxyCODONE HCL 5 MG TABLET PO PRN ×3 (06:23→14:26)
[2020-03-17 06:36] LABS: BLOOD UREA NITROGEN 12.9 mg/dL (7-18); CREATININE 0.8 mg/dL (0.55-1.3); POTASSIUM 3.4 mmol/L (3.5-5.1)
[2020-03-17] MEDS ORDERED: POTASSIUM CHLORIDE TABS 20 MEQ TABLET.ER (FP) PO ONE (08:03)
[2020-03-17] MEDS: ENOXAPARIN NA (PORCINE) 40 MG/0.4 ML DISP.SYRIN SQ SCH (09:20)
[2020-03-17] MEDS: ASPIRIN 325 MG TABLET PO SCH (09:21)
[2020-03-17] MEDS: DOCUSATE SODIUM 100 MG CAPSULE (FP) PO SCH (09:21)
--- NOTE | 2020-03-17 10:47 | PATH ---
Surgical Pathology Report Patient Name: SAMMY CEVALLOS [facility]. Rec. #: [id number] /Age/Gender: 1965 (Age: 54) / F Account: [id number] Location: [facility] Taken: 03/14/2020 Received: 03/15/2020 Reported: 03/17/2020 Physicians: Madan Kim MD Specimen(s) Received A: REMOVED LEFT BREAST IMPLANT B: REMOVED RIGHT BREAST IMPLANT C: LEFT BREAST TISSUE D: RIGHT BREAST TISSUE Clinical History History of breast cancer, bilateral breast reconstruction with BENNY Flap, removal of breast implants Final Diagnosis A. REMOVED LEFT BREAST IMPLANT: CONSISTENT WITH BREAST IMPLANT. GROSSLY EXAMINATION ONLY. B. REMOVED RIGHT BREAST IMPLANT: CONSISTENT WITH BREAST IMPLANT. GROSSLY EXAMINATION ONLY. C. LEFT BREAST TISSUE, EXCISION: DENSE FIBROUS TISSUE SHOWING CHRONIC INFLAMMATION, FOCAL HISTIOCYTIC REACTION WITH VACUOLATED CYTOPLASM, AND EMPTY VACUOLES CONTAINING CLEAR, REFRACTILE, NON-POLARIZABLE MATERIAL. SEE COMMENT. NEGATIVE FOR MALIGNANCY. Comment: Findings are compatible with silicone material with associated reaction. Suggest clinical correlation. D. RIGHT BREAST TISSUE, EXCISION: DENSE FIBROUS TISSUE WITH FOCAL CHRONIC INFLAMMATION AND HISTIOCYTIC REACTION. NEGATIVE FOR MALIGNANCY. Electronically Signed Erica Peña M.D. Gross Description A. Received in a container, labeled "removed left breast implant", and consists with a non-intact breast implant ([place], [id number], HP 600cc) weighing 585 g, measuring 14.5 x 14.5 x 3 cm. The rubbery surface shows focal discontinuation measuring 7.5cm in greatest dimension. Thick yellowish gelatinous content is present at the surface. Gross examination only. B. Received in a container, labeled "removed right breast implant", and consists with a breast implant ([place], [id number], HP 650cc) weighing 651 g, measuring 14.5 x 14.5 x 5 cm. The rubbery surface appears intact. Gross examination only. C. Received in formalin, labeled "left breast tissue" is a portion of irregular, larson, firm membranous tissue measuring 11.5 x 7.0 x 0.1 cm, consistent with breast capsule. The specimen is sectioned and financial service representative sections are submitted in two cassettes. D. Received in formalin, labeled "right breast tissue" is a portion of larson, firm membranous tissue measuring 13 x 3.5 x 0.2 cm, consistent with breast capsule. The specimen is sectioned and financial service representative sections submitted in one cassette. KWAlona/03/15/2020 meggan/03/15/2020
--- NOTE | 2020-03-17 10:56 | PN ---
Progress Note (short form) - Note Progress Note: POD 3, s/p B/l BENNY flaps breast reconstruction Pt seen and examined. Reports she is feeling much better. Has been oob to chair. States she is ready for d/c today. Tolerating PO, no n/v. Voiding without issue. Denies cp/sob, n/v/d. Vital Signs Temp 98.6 F 03/17/20 07:00 Pulse 81 03/17/20 09:00 Resp 19 03/17/20 09:00 BP 113/56 L 03/17/20 09:00 Pulse Ox 100 03/17/20 09:00 Intake & Output 03/16/20 03/16/20 03/17/20 11:59 23:59 11:59 Intake Total 1250 1000 260 Output Total 2064 1255 365 Balance -814 -255 -105 Weight 175 lb 175 lb Intake: IV 750 D5-1/2Ns - 1,000 ml @ 125 750 mls/hr IV ASDIR ELENA Rx#: [id number] Oral 500 1000 260 Output: Drainage 364 180 65 #1 Right Breast 69 30 10 #2 Right Lower Abdomen 30 80 20 #3 Left Breast 50 20 10 #4 Left Lower 27 50 25 Left Lower Abdomen 63 Right Lower Abdomen 65 left breast 25 right breast 35 Urine 1700 1075 300 Harris 1700 Straight Cath 975 Void 100 300 Other: Voiding Method Bedpan Bedpan Bedpan # Unmeasured Voids Straight Cath 1 Bowel Movement No No Height 5 ft 5 in Body Mass Index (BMI) 29.1 Weight Measurement Method Estimated by Patient Estimated by Patient CBC, BMP 03/17/20 05:15 03/17/20 05:15 Gen: awake, alert, nad Resp: unlabored on RA Chest: b/l flaps warm, pink, no vascular congestion noted. Inframammary incisions c/d/i with dermabond inplace, drains intact, b/l tubing stripped, minimal serosanguinous drainage in reservoirs. Abdo: belly button with dermabond c/d/i, umbilicus with dried scab noted. abdominoplasty incision c/d/i with dermabond in place, no erythema or drainage. drains in place with minimal serosanguinous drainage in reservoir, tubing stripped. A/P: 54 y/o F w/ PSHx of previous prophylactic, bilateral mastectomy w/ reconstruction (2010 - Dr. 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 afebrile, vss labs reviewed tiana output overnight: R breast: 10ml, R abdo: 20ml, L breast 10ml, L abdo: 25ml Plan for d/c today will change drain dressings prior to d/c discussed with attending Dr Kim
--- NOTE | 2020-03-17 11:27 | DS ---
Physical Exam: SUBJECTIVE: Patient seen and examined at bedside. pt in no acute distress. states pain is better controlled. endorses OBJECTIVE: Vital Signs Period Temp Pulse Resp BP Sys/Doran Pulse Ox Last 24 Hr 98.1 F-98.6 F 78-100 17-21 102-120/54-98 98-100 PHYSICAL EXAM GENERAL: The patient is awake, alert, and fully oriented, in no acute distress. HEAD: Normal with no signs of trauma. LUNGS: Breath sounds equal, clear to auscultation bilaterally, no wheezes, no crackles, no accessory muscle use. HEART: Regular rate and rhythm, S1, S2 systolic murmur ABDOMEN: Soft, nontender, nondistended, normoactive bowel sounds, no guarding, no rebound EXTREMITIES: 2+ pulses, warm, well-perfused, no edema. NEUROLOGICAL: Cranial nerves II through XII grossly intact. Normal speech, gait not observed. PSYCH: Normal mood, normal affect. SKIN: Warm, dry, normal turgor, no rashes or lesions noted. LABS CBC, BMP 03/17/20 05:15 03/17/20 05:15 HOSPITAL COURSE: Date of Admission:03/14/20 54 yo F w/ PSHx of previous prophylactic, bilateral mastectomy w/ reconstruction (2010 - Dr. 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 Kim. POD 3. pt had no acute tele events and has improved and stable on room air . pt is encouraged to continue incentive spirometry. pt received ancef chasidy-operative. pt should continue with medications as prescribed by surgery and should follow up with Dr. Kim. pt was on asa and lovenox for dvt ppx. Date of Discharge: 03/17/20 Discharge Summary Reason For Visit: PERSONAL HISTORY OF MALIGNANT NEOPLASM OF BREAST Condition: Good - Instructions Diet, Activity, Other Instructions: Drs. Salazar and Julio Discharge Instructions -BENNY Flap Diet: Resume regular diet. Avoid caffeinated beverages Encourage low salt diet to help with swelling. Encourage fluid intake. Activity: Please maintain flexed position at all times (when sleeping, place pillows behind back and under your knees). Sponge bath only until your office visit. Please be careful moving your arms too much and using your pectoralis muscles (chest) for the first few days as well. Wound care: Please keep all dressings on as is. Can remove the gauze in bra before bathing, but leave all the tapes/steri-strips on. Please wear surgical bra at all times, except when bathing. Swelling in the abdomen, flanks and thighs is to be expected. Feeling of deep soreness is also to be expected. Medication: Patient already received all prescriptions prior to surgery. Please take them as instructed. Appointment: Please call our office within one week to make an appointment to see your surgeon at [phone]. If you have any questions or concerns, please call/return to office sooner. Referrals: Madan Kim MD [Staff Physician] - Disposition: HOME - Home Medications Comprehensive Discharge Medication List: Ambulatory Orders Multivitamin [Multiple Vitamins] 1 each PO DAILY 03/13/20 Sennosides [Senna -] 1 tab PO PRN 03/14/20 Aspirin [Aspirin EC] 81 mg PO DAILY #30 tablet. 03/15/20 Cefadroxil 500 mg PO BID #20 capsule 03/15/20 Docusate Sodium [Colace] 100 mg PO BID #30 capsule 03/15/20 oxyCODONE HCL [Roxicodone -] 5 mg PO Q4H PRN #30 tablet MDD 8 03/15/20 ATTENDING PHYSICIAN STATEMENT I saw and evaluated the patient. I reviewed the resident's note and discussed the case with the resident. I agree with the resident's findings and plan as documented. SUBJECTIVE: OBJECTIVE: ASSESSMENT AND PLAN:
--- NOTE | 2020-03-17 12:59 | PN ---
Teaching Attending Note Name of Resident: Stefani Cameron ATTENDING PHYSICIAN STATEMENT I saw and evaluated the patient. I reviewed the resident's note and discussed the case with the resident. I agree with the resident's findings and plan as documented. SUBJECTIVE: Patient seen and examined in the ICU. Pain better controlled. No shortness of breath. Doing better with her Incentive Spirometry > 1000cc. OBJECTIVE: Intake & Output 03/14/20 03/15/20 03/16/20 03/17/20 23:59 23:59 23:59 23:59 Intake Total 4100 2975 2250 260 Output Total 2116 1614 3319 428 Balance 1983 1361 -1069 -168 Weight 175 lb 175 lb 175 lb Last Vital Signs Temp Pulse Resp BP Pulse Ox 98.6 F 84 21 H 106/61 100 03/17/20 07:00 03/17/20 11:00 03/17/20 11:00 03/17/20 11:00 03/17/20 11:00 Active Medications Acetaminophen (Tylenol -) 650 mg PO Q4H PRN PRN Reason: PAIN LEVEL 1 - 3 Last Admin: 03/16/20 01:41 Dose: 650 mg Documented by: Aspirin (Asa -) 325 mg PO DAILY [facility] Last Admin: 03/17/20 09:21 Dose: 325 mg Documented by: Diazepam (Valium -) 5 mg PO Q8H PRN PRN Reason: ANXIETY Last Admin: 03/16/20 10:11 Dose: 5 mg Documented by: Docusate Sodium (Colace -) 100 mg PO BID [facility] Last Admin: 03/17/20 09:21 Dose: 100 mg Documented by: Enoxaparin Sodium (Lovenox -) 40 mg SQ DAILY [facility] Last Admin: 03/17/20 09:20 Dose: 40 mg Documented by: Hydromorphone HCl (Dilaudid Vial -) 1 mg IVPB Q4H PRN PRN Reason: PAIN LEVEL 4-6 Last Admin: 03/15/20 16:53 Dose: 1 mg Documented by: Ketorolac Tromethamine (Toradol Injection -) 30 mg IVPUSH Q8H-IV ELENA Stop: 03/21/20 09:59 Last Admin: 03/17/20 09:03 Dose: 30 mg Documented by: Ondansetron HCl (Zofran Injection) 4 mg IVPUSH Q6H PRN PRN Reason: NAUSEA AND/OR VOMITING Oxycodone HCl (Roxicodone -) 5 mg PO Q4H PRN PRN Reason: PAIN LEVEL 1-3 Last Admin: 03/17/20 08:52 Dose: 5 mg Documented by: Oxycodone HCl (Roxicodone -) 10 mg PO Q4H PRN PRN Reason: PAIN LEVEL 7-10 Last Admin: 03/17/20 06:23 Dose: 10 mg Documented by: Gen: NAD at rest Heart: RRR Lung: decreased breath sounds at the bases Abd: soft, incisions clean Ext: no edema Laboratory Results - last 24 hr 03/17/20 03/17/20 05:15 05:15 WBC 8.5 RBC 2.44 L Hgb 7.4 L Hct 21.8 L MCV 89.3 MCH 30.2 MCHC 33.9 RDW 12.8 Plt Count 167 MPV 8.8 Sodium 140 Potassium 3.4 L Chloride 106 Carbon Dioxide 27 Anion Gap 8 BUN 12.9 Creatinine 0.8 Est GFR (CKD-EPI)AfAm 96.19 Est GFR (CKD-EPI)NonAf 83.00 Random Glucose 137 H Calcium 8.0 L ASSESSMENT AND PLAN: POD #2 : Bilateral BENNY flap breast reconstruction Breast CA Anemia - pain control - incentive spirometry - O2 to keep SpO2 >90% - DVT prophylaxis - OOB to chair / PT - DC planning Dr Nelson
[2020-03-17] MEDS: diazePAM 5 MG TABLET PO PRN (14:27)
[2020-03-17 14:34] VITALS: TEMP 98.8
[2020-03-17 15:20] VITALS: BP 107/55; PULSE 80
--- NOTE | 2020-03-19 14:27 | OP ---
DATE OF OPERATION: 03/14/2020 PREOPERATIVE DIAGNOSES: 1. Personal history of breast cancer. 2. Acquired absence of bilateral breasts. 3. Deformity of bilateral reconstructed breasts. POSTOPERATIVE DIAGNOSES: 1. Personal history of breast cancer. 2. Acquired absence of bilateral breasts. 3. Deformity of bilateral reconstructed breasts. PROCEDURE: 1. Bilateral breast implant removal with open periprosthetic bilateral capsulectomies. 2. Bilateral breast reconstruction with deep inferior epigastric structural draftsman microvascular free flaps (right breast flap: 824 g; left breast flap: 801 g. 3. Bilateral partial 3rd rib resection. 4. Bilateral exploration of internal mammary vessels with extensive adventitiectomy. 5. Bilateral mastectomy skin flap and lower abdominal microvascular free flap, intraoperative angiography using indocyanine green. 6. Processing and interpretation of bilateral intraoperative angiography images. 7. Bilateral ultrasound-guided transverse abdominis plane regional nerve blocks. ATTENDING SURGEON: Madan Kim MD CO-SURGEON: Froylan Salazar MD ANESTHESIA: General endotracheal. ESTIMATED BLOOD LOSS: 100 mL. SPECIMEN: 1. Right breast implant to Pathology for gross examination only. 2. Left breast implant (ruptured) to Pathology for gross examination only. 3. Right breast capsule to Pathology. 4. Left breast capsule to Pathology. DRAINS: 1. Number 15 round Osito drain x1 to right breast. 2. Number 15 round Osito drain x1 to left breast. 3. Number 15 round Osito drain x2 to abdomen. COMPLICATIONS: None. CONDITION: Stable to recovery room, extubated. INDICATIONS: The patient is a 54-year-old female with a history of bilateral mastectomies and implant-based reconstruction many years ago. She presents with bilateral breast capsular contractures, worse on the left. This is causing her significant pain and discomfort as well as deformities of bilateral reconstructed breasts. The patient is therefore indicated for bilateral breast implant removal with capsulectomies. We discussed the delayed reconstruction options, and the patient is most appropriately a candidate for autologous reconstruction using her lower abdominal tissue. The risks, benefits and alternatives of the reconstructive procedures were discussed with the patient preoperatively on multiple occasions, and all questions were answered. The risks include but are not limited to bleeding, infection, pain, need for revision or further surgery, partial or complete skin flap loss, partial or complete nipple loss, partial or complete microvascular free flap loss, damage to neighboring structures including nerves, arteries, veins, and tendons. The patient understands these risks and has elected to proceed with surgery. I performed this operation with Dr. Salazar as co-surgeons for the breast reconstruction. The reason for having co-surgeons perform this microvascular operation was due to the high complexity of the operation and the patient. Preoperative imaging of the abdomen indicated a very complicated structural draftsman anatomy, and 2 skilled microsurgeons were required to safely and efficiently isolate and preserve these perforators without damage to surrounding neurovascular structures. Working simultaneously and independently, myself and Dr. Salazar were able to safely preserve these perforators, dissect out a structural draftsman flap, and successfully anastomose the flaps in the chest. In addition, we ensured all other vital structures in the chest and abdomen were safely preserved. The patient has multiple co-morbidities that make her case particularly challenging and complex and thus having myself as co-surgeons significantly improves the chances of a successful outcome in an efficient time period for the patient, which enhances patient safety. PROCEDURE: After proper identification and marking of the patient in the preoperative holding area, the patient was transported to the operating room and placed supine on the table, where all noninvasive anesthesia monitors were applied. Intravenous access was established. General anesthesia was administered and the patient was intubated without difficulty. SCD boots were applied to bilateral extremities. Intravenous antibiotics had been given. A Harris catheter was then placed. Subcutaneous heparin 5000 units was given. At this point, the patient's bilateral breasts as well as abdomen and flanks were prepped and draped in the usual sterile fashion. Once a timeout was performed, Dr. Salazar and I began the reconstruction, working independently as co-surgeons, with separate instrument setups. Attention was first turned towards the right breast, where the previous inframammary fold incision was made with a number 10 blade. The dissection was carried down to the full thickness of the subcutaneous tissue. The underlying breast capsule was identified. At this point, a circumferential extracapsular dissection was performed, first along the superficial surface of the right breast capsule. Next, the dissection was performed on the deep surface and the right breast capsule was removed in its entirety and passed off the field to be sent to Pathology. The breast capsule was incised and the underlying breast implant was noted to be intact and this was passed off the field for gross examination only. At this point, the right breast pocket was irrigated and hemostasis was ensured. Next, the inferior edge of the pectoralis major muscle was identified and electrocautery was used to develop a plane on the superficial surface of the pectoralis major muscle. This prepectoral plane was developed superiorly, medially, and laterally, and the pectoralis major muscle was then advanced and was re-inset to the chest wall in multiple locations using a 2-0 PDS suture in interrupted [id number] fashion. Once this was completed, the right breast pocket was again irrigated and hemostasis ensured. At this point, a local anesthetic mixture consisting of 20 mL of Exparel, 30 mL of 0.25% Marcaine, and 80 mL of normal saline was used to perform a right anterior and lateral chest wall field block. A total of 30 mL was given. Next, self-retaining retractors were placed. The interspace between the 2nd and 3rd ribs was then identified. The pectoralis major muscles fibers were divided overlying this space along the course of the muscle fibers. The muscle fibers were then retracted and the periosteum and perichondrium on the superficial surface of the right 3rd rib was incised with electrocautery. At this point, a circumferential subperiosteal and subperichondrial dissection was performed and partial resection of the right 3rd rib was then performed at the costochondral junction. Once an adequate postage-stamp size piece of rib had been removed, the underlying perichondrium was incised and the internal mammary artery with accompanying medial vein were identified. At this point, microvascular instruments and techniques were used to perform a formal exploration of the right internal mammary vessels. Extensive adventitiectomies were performed on the artery as well as the accompanying vein in preparation for the microvascular anastomoses. Once the vessels were adequately prepared on the right side, attention was turned towards the left breast, where the exact same procedures were performed in order to remove the left breast implant, perform an open periprosthetic capsulectomy, dissect a new prepectoral plane and reinsert the pectoralis major muscle, and partially resect the left 3rd rib and explore the internal mammary vessels. Therefore, only one side will be dictated. It should be noted that the left breast implant was noted to be ruptured and this was passed off the field for gross examination only. The left breast capsule was passed off the field to Pathology as well. Concurrently, harvesting of bilateral lower abdominal microvascular free flaps was performed. Skin hooks were placed at the 12 and 6 o'clock position of the umbilicus. The umbilicus was circumferentially incised with a number 15 blade. A periumbilical dissection was then performed with a Metzenbaum scissors, with care taken to leave adequate periumbilical fat. Next, the superior and inferior limbs of the lower abdominal flaps were incised with a number 10 blade. The superior limb was carried down to the full thickness of the subcutaneous tissue with electrocautery, with care taken to bevel slightly outwards. Once the anterior abdominal wall was reached, the superior abdominal skin flap was raised up to the xiphoid process in the midline and the costal margin bilaterally. Next, the inferior incision was carried down through the subcutaneous tissue in a [id number] fashion with electrocautery. Bilateral superficial inferior epigastric veins were identified. At this point, microvascular instruments and techniques were used to perform proximal dissections along the bilateral superficial veins. Care was taken to individually identify, circumferentially dissect, ligate and divide side branches. Once adequate length and caliber had been achieved on the bilateral superficial veins, the veins were ligated and divided. The remainder of the subcutaneous tissue was then dissected down to the anterior abdominal wall. Next the lower abdominal tissue was incised in the midline and the dissection carried down through the full thickness of the subcutaneous tissue with electrocautery to the linea alba. Attention at this point was turned towards the right lower abdominal flap, which was raised from both medial and lateral direction just above the level of the anterior abdominal wall. Once the medial and lateral rib perforators were visualized, there were noted to be dominant lateral row perforators which coincided with the patient's preoperative imaging. The decision was made to base the right lower abdominal structural draftsman flap off of 3 lateral rib perforators. The perforators were circumferentially dissected as they exited through the fascial. The fascia was then opened superiorly and inferiorly as well as the intervening fascia between the perforators. At this point, individual retrograde structural draftsman dissections were performed through the full thickness of the rectus abdominis muscle fibers. Care was taken to divide the muscle fibers longitudinally as much as possible. Muscular side branches were individually identified, circumferentially dissected, ligated, and divided. Once the perforators had been dissected down to their takeoffs from the inferior epigastric pedicle, the superior continuation of the pedicle was circumferentially dissected, ligated, and divided. At this point, a more proximal pedicle dissection was performed until adequate length and caliber had been achieved. Once this was achieved, the remainder of the lower abdominal flap was raised off the anterior abdominal wall. The inferior epigastric artery and accompanying vein were then individual isolated. At this point, the flap was temporarily stapled in place. A Doppler signal was achieved on the skin paddle and a medial crescent-shaped skin paddle was designed, incised, and the remainder of the flap de-epithelialized. At this point, attention was turned towards the left lower abdominal flap. It was raised in a similar fashion as to the right side, and therefore only one side will be dictated. Again on the left side there were noted to be dominant lateral row perforators and 4 lateral row perforators were chosen to supply the flap. The individual structural draftsman dissections were performed in a similar fashion as to the right side and therefore only one side will be dictated. Once the left lower abdominal structural draftsman flap had been completely isolated, a similar skin paddle was designed, incised, and de-epithelialized. At this point, with bilateral lower abdominal structural draftsman flaps completely dissected and bilateral breast pockets and recipient vessels completely prepared, attention was turned towards the intraoperative angiography. The SPY angiography system was brought into the field and was sterilely draped. A 5 mL IV injection of indocyanine green was given and bilaterally mastectomy skin flap as well as bilateral lower abdominal flap angiography were performed. The bilateral angiography images were processes and relative perfusion data was used to assess the viability of all tissue. There was noted to be good perfusion to bilateral mastectomy skin flaps as well as bilateral nipple-areolar complexes. Areas of hypoperfusion of the lower abdominal structural draftsman flaps on the margins were marked, excised, and discarded. Once the angiography was completed, attention was turned towards the microvascular transfer. The right lower abdominal flap was ligated and divided at the most proximal extent of the pedicle dissection. It was placed on a sterile scale and was noted to weigh 801 g. It was brought to the left breast pocket, where it was temporarily stapled in place. At this point, the microvascular anastomoses were performed. A 2.5-mm Synovis ornithology teacher was used to anastomose the antegrade stump of the medial internal mammary vein to the medial vein of the inferior epigastric system. This was performed using a 2.5-mm Synovis ornithology teacher. Release of all clamps revealed good backflow across this anastomosis. Next, a 2nd venous anastomosis between the antegrade stump of the lateral branch of the internal mammary vein and the remaining deep vein of the inferior epigastric system was performed using a 2.0-mm Synovis ornithology teacher. Release of all clamps revealed good backflow across this anastomosis as well. Next, attention was turned towards the arterial anastomosis. A primary hand-sewn anastomosis was performed between the internal mammary artery and the inferior epigastric artery using an 8-0 nylon suture in a simple interrupted fashion. Release of all clamps revealed good flow across this anastomosis. The flap was noted to be well perfused and therefore attention was turned towards insetting of the flap. Self-retaining retractors were removed, the flap were carefully positioned into the left breast pocket. Care was taken to ensure a good lie of the pedicle without twisting or kinking. At this point, the Connequity implantable Doppler system was brought in to the field and a window was created around the inferior epigastric artery distal to the arterial anastomosis. The implantable Doppler was then placed around the inferior epigastric artery and secured with a small clip. There was noted to be a strong biphasic signal and therefore the flap was inset to the chest wall in multiple locations along the medial and superior aspects. Next, a number 15 round Osito drain was placed near the left breast pocket and brought out through a separate stab incision laterally and secured to the skin with 3-0 nylon suture. The amount of skin paddle to be externalized along the inferior pole was then marked and redundant skin paddle was de-epithelialized. There was noted to be bright red bleeding from the dermal edges, therefore, the skin paddle of the microvascular free flap was then inset to the surrounding mastectomy flap skin edges using a 3-0 Monocryl in a buried deep dermal fashion followed by 3-0 Biosyn in an interrupted buried deep dermal fashion followed by a 3-0 V-Loc suture in a running subcuticular fashion. At the conclusion of the left breast closure, there were noted to be strong biphasic implantable and external Doppler signals. At this point, attention was turned towards the microvascular transfer of the right breast flap. The left lower abdominal flap was ligated and divided at the most proximal extent of the pedicle dissection. It was placed on a sterile scale and was noted to weigh 824 g. It was brought to the right breast pocket, where it was temporarily stapled in place. At this point, the microvascular anastomoses were performed. A 3.0-mm Synovis ornithology teacher was used to anastomose the antegrade stump of the medial internal mammary vein to the dominant vein of the inferior epigastric system. Release of all clamps revealed good backflow across this anastomosis. Next, the arterial anastomosis was performed between the internal mammary artery and inferior epigastric artery using an 8-0 nylon suture in a simple interrupted fashion. Release of all clamps revealed good flow across this anastomosis and good perfusion to the microvascular free flap. Next, a 2nd venous anastomosis was performed between the superficial inferior epigastric vein and the retrograde stump of the internal mammary vein. This was performed using a 2.5-mm Synovis ornithology teacher. Release of all clamps revealed good flow across this anastomosis as well. With all microvascular anastomoses completed on the right side, the right breast flap was inset and the right breast closed in a similar fashion as to the left side and therefore only one side will be dictated. A Connequity implantable Doppler had been placed around the right inferior epigastric artery as well, and there were noted to be strong biphasic implantable and external Doppler signals at the conclusion of the closure. Concurrently, closure of the abdomen was performed. Bilateral lower abdominal fascial incisions were reapproximated primarily using a 0 V-Loc barbed suture in simple running fashion. Once this was completed, the ultrasound system was brought in to the field and was sterilely draped. The same local anesthetic mixture that had been used for the chest wall field blocks was now used to perform bilateral transverse abdominis plane regional nerve block. A total of 30 mL was injected into each transverse abdominis plane, again under ultrasound guidance. Once the regional nerve blocks were completed, 2 number 15 round Osito drains were placed at the abdominal dissection pocket and brought up through the most lateral extent of the lower abdominal incision and secured to the skin with 3-0 nylon sutures. The patient at this point was placed into a flexed position. The superior abdominal skin flap was advanced and was closed in layers using 2-0 PDS in an interrupted buried fashion to reapproximate Prosper's fascia, followed by a 3-0 PDS in a buried deep dermal fashion, and finally a 3-0 V-Loc suture in a running subcuticular fashion. The site of the umbilicus transposition had been marked in a vertically-oriented ellipse with a core of fat was excised and discarded. The umbilicus was then transposed and inset using a 3-0 PDS in a buried deep dermal fashion, followed by Dermabond skin glue for the final closure. At the conclusion of the closure, bilateral breast microvascular free flaps were noted to be well perfused with strong Doppler signals. Dermabond was applied to bilateral breast closure lines. All drains were dressed with BioPatches and Tegaderm at their exit sites and hooked up to bulb suction. The lower abdominal incision was dressed with Prineo tape. The patient at this point was placed into a soft surgical bra and was slowly awakened and extubated without incident, and then was transported to the recovery room in stable condition. MADAN KIM M.D. [id number]
== END 2020-03-17 17:31 | disposition home or self-care (01) | DRG 585 ==
LOC: J2C 06:28 → EDSTATUS 08:00 → JICU 22:04
PROVIDERS: ADMIT Plastic Surgery; ATTEND Plastic Surgery
PROC: 0HPU0JZ Removal of Synthetic Substitute from Left Breast, Open Approach (ICD-10-PCS; 2020-03-14)
PROC: 0HPT0JZ Removal of Synthetic Substitute from Right Breast, Open Approach (ICD-10-PCS; 2020-03-14)
PROC: 4A1GXSH Monitoring of Skin and Breast Vascular Perfusion using Indocyanine Green Dye, External Approach (ICD-10-PCS; 2020-03-14)
PROC: 3E0T3BZ Introduction of Anesthetic Agent into Peripheral Nerves and Plexi, Percutaneous Approach (ICD-10-PCS; 2020-03-14)
PROC: 0HRV077 Replacement of Bilateral Breast using Deep Inferior Epigastric Artery Perforator Flap, Open Approach (ICD-10-PCS; principal; 2020-03-14 08:00)
DX: T85.44XA Capsular contracture of breast implant, initial encounter (principal); Y83.9 Surgical procedure, unspecified as the cause of abnormal reaction of the patient, or of later complication, without mention of misadventure at the time of the procedure; Z90.13 Acquired absence of bilateral breasts and nipples; D64.9 Anemia, unspecified; Z85.3 Personal history of malignant neoplasm of breast
CPT/HCPCS: 36415; 80048; 80053; 83735; 84100; 85025; 85027; 85610; 86850; 86900; 86901; 88300-TC; 88304-TC; 93005; 93010; 94760; 97116-GP; 97161-GP; J1644